=== PATIENT | male | born 1960 | race Caucasian/White ===

== ENCOUNTER 2018-07-26 17:20 | Emergency (ER) | payer MEDICAID, MEDICARE ==
[~2018-07-26] VITALS: Ht 177.8 cm; Wt 69.4 kg
[~2018-07-26 17:20] MED LIST: HYDR-565 PO
[2018-07-26 17:23] VITALS: BP 158/104
[2018-07-26] MEDS ORDERED: HYDR-565 PO (18:28)
== END 2018-07-26 18:45 | disposition home or self-care (01) ==
LOC: ER 17:20
DX: M79.672 Pain in left foot (principal); E78.00 Pure hypercholesterolemia, unspecified; G89.29 Other chronic pain; Z79.899 Other long term (current) drug therapy; Z98.890 Other specified postprocedural states
CPT/HCPCS: 99283

== ENCOUNTER 2020-02-09 12:38 | Emergency (ER) | payer MEDICARE ==
[~2020-02-09] VITALS: Ht 177.8 cm; Wt 72.7 kg
[~2020-02-09 12:38] MED LIST changes: +HYDR-4353 PO; -HYDR-565 PO
[2020-02-09 13:04] VITALS: BP 140/91
[2020-02-09] MEDS ORDERED: ketorolac tromethamine 15mg/ml inj. IM ONE (14:50)
[2020-02-09] MEDS ORDERED: morphine 4 MG/ML inj SYRINge IM ONE (14:50)
[2020-02-09] MEDS ORDERED: LIDOcaine 5% patch TP SCH (15:35)
[2020-02-09] MEDS ORDERED: HYDR-4353 PO ×2 (15:52)
== END 2020-02-09 16:18 | disposition home or self-care (01) ==
LOC: ER 12:38
DX: S42.212A Unspecified displaced fracture of surgical neck of left humerus, initial encounter for closed fracture (principal); S22.42XA Multiple fractures of ribs, left side, initial encounter for closed fracture; E78.00 Pure hypercholesterolemia, unspecified; G89.29 Other chronic pain; Z98.890 Other specified postprocedural states; Z79.899 Other long term (current) drug therapy
CPT/HCPCS: 29240; 71101; 73030; 96372; 99284; J1885; J2270; 29260

== ENCOUNTER 2020-02-12 11:52 | Emergency (ER) | payer MEDICARE ==
[~2020-02-12] VITALS: Ht 177.8 cm; Wt 68.2 kg
[2020-02-12 12:08] VITALS: BP 139/102
[2020-02-12] MEDS ORDERED: HYDROcodone/acetaminophen 10/325mg tab PO ONE (12:30)
[2020-02-12] MEDS ORDERED: HYDR-3972 PO (12:30)
== END 2020-02-12 13:01 | disposition home or self-care (01) ==
LOC: ER 11:52
DX: R07.81 Pleurodynia (principal); M79.642 Pain in left hand; E78.00 Pure hypercholesterolemia, unspecified; G89.29 Other chronic pain; Z98.890 Other specified postprocedural states; Z76.0 Encounter for issue of repeat prescription
CPT/HCPCS: 99284

== ENCOUNTER 2020-02-15 12:28 | Emergency (ER) | payer MEDICARE ==
[~2020-02-15] VITALS: Ht 177.8 cm; Wt 70.0 kg
[~2020-02-15 12:28] MED LIST changes: +HYDR-3972 PO
[2020-02-15 12:33] VITALS: BP 160/99
[2020-02-15] MEDS ORDERED: HYDR-4353 PO (13:54)
== END 2020-02-15 14:22 | disposition home or self-care (01) ==
LOC: ER 12:28
DX: Z88.5 Allergy status to narcotic agent (principal); Z88.6 Allergy status to analgesic agent; E78.00 Pure hypercholesterolemia, unspecified; G89.29 Other chronic pain; Z98.890 Other specified postprocedural states
CPT/HCPCS: 99281

== ENCOUNTER 2022-07-01 23:01 | Inpatient (IN) | payer MEDICARE ==
[~2022-07-01] VITALS: Ht 177.8 cm; Wt 68.2 kg
[2022-07-01] MEDS ORDERED: normal saline 1000ML IV soln IVB ONE (23:55)
[2022-07-02] MEDS: morphine 2 MG/ML inj. syringe IV PRN ×7 (00:11→13:25)
[2022-07-02 00:30] LABS: BASOPHILS # (AUTO) 0.1 X10'3 (0-0.2); BASOPHILS % (AUTO) 1.6 % (0-1); EOSINOPHILS % (AUTO) 0.3 % (0-6); HEMATOCRIT 47.4 % (42.0-52.0); HEMOGLOBIN 16.2 g/dl (14.0-17.9); LYMPHOCYTES # (AUTO) 1.8 X10'3 (1.1-4.8); LYMPHOCYTES % (AUTO) 23.3 % (21-51); MEAN CORPUSCULAR HEMOGLOBIN 31.8 PG (27.0-31.0); MEAN CORPUSCULAR HGB CONC 34.3 g/dL (33.0-36.5); MEAN CORPUSCULAR VOLUME 92.8 FL (78-98); MEAN PLATELET VOLUME 7.6 FL (7.4-10.4); MONOCYTES # (AUTO) 0.7 X10'3 (0-0.9); MONOCYTES % (AUTO) 8.6 % (2-12); NEUTROPHILS # (AUTO) 5.3 X10'3 (1.8-7.7); NEUTROPHILS % (AUTO) 66.2 % (42-75); PLATELET COUNT 362 X10'3 (140-440); RED BLOOD COUNT 5.11 X10'6 (4.70-6.10); RED CELL DISTRIBUTION WIDTH 14.6 % (11.5-14.5)
[2022-07-02 00:37] LABS: APTT 30 SECONDS (22-32)
[2022-07-02 00:39] LABS: ALANINE AMINOTRANSFERASE 54 U/L (12-78); ALBUMIN 3.1 G/DL (3.4-5.0); ALBUMIN/GLOBULIN RATIO 0.8 (1.1-1.5); ALKALINE PHOSPHATASE 87 IU/L (46-116); ANION GAP 10 (8-16); ASPARTATE AMINO TRANSFERASE 56 U/L (10-37); BILIRUBIN,TOTAL 0.7 MG/DL (0.1-1.0); BLOOD UREA NITROGEN 5 MG/DL (7-18); BUN/CREATININE RATIO 5.6 (5.4-32.0); CALCIUM 8.2 MG/DL (8.5-10.1); CHLORIDE 102 MMOL/L (99-107); ETHANOL 0.172 GM/DL (0.0-0.010); GLUCOSE 106 MG/DL (70-104); SODIUM 137 MMOL/L (135-145); TOTAL CARBON DIOXIDE 25.4 MMOL/L (24-32); TOTAL PROTEIN 6.8 G/DL (6.4-8.2); eGFR 86 ML/MIN
[2022-07-02 00:46] LABS: POTASSIUM 4.6 MMOL/L (3.5-5.1)
[2022-07-02] MEDS ORDERED: HYDROcodone/acetaminophen 5mg/325mg tablet PO PRN (01:25)
[2022-07-02] MEDS ORDERED: morphine 2 MG/ML inj. syringe IV PRN (01:25)
[2022-07-02] MEDS ORDERED: LORazepam 2 mg/ml vial IV PRN (01:25)
[2022-07-02] MEDS ORDERED: diphenhydrAMINE 50 mg/ml inj IV PRN (01:25)
[2022-07-02] MEDS ORDERED: ondansetron 4mg rapidly disintigrating tab PO PRN (01:25)
[2022-07-02] MEDS ORDERED: acetaminophen 325mg tablet PO PRN ×2 (01:25)
[2022-07-02] MEDS ORDERED: acetaminophen 650mg rectal suppository RC PRN (01:25)
[2022-07-02] MEDS ORDERED: mag hydrox/Alum hydrox/simeth 30ml oral suspension PO PRN (01:25)
[2022-07-02] MEDS ORDERED: ondansetron/PF 4mg/2ml inj IV PRN (01:25)
[2022-07-02] MEDS ORDERED: bisacodyl 10mg suppository rectal RC PRN (01:25)
[2022-07-02] MEDS ORDERED: diphenhydrAMINE 25mg capsule PO PRN (01:25)
[2022-07-02] MEDS ORDERED: dextrose 50%-water 50ml dispensing syringe IV PRN (01:25)
[2022-07-02] MEDS ORDERED: magnesium hydroxide 30ml (MOM) UD suspension PO PRN (01:25)
[2022-07-02] MEDS: dextrose 5%-1/2 normal saline 1,000 ML IV SCH ×2 (01:53→15:06)
[2022-07-02 01:58] LABS: HEMOGLOBIN A1C 5.6 % (4.5-6.2)
[2022-07-02 02:04] LABS: MAGNESIUM 1.5 MG/DL (1.5-2.4); PHOSPHORUS 2.6 MG/DL (2.3-4.5)
[2022-07-02] MEDS ORDERED: NO HOME MEDS (03:56)
[2022-07-02] MEDS: HYDROmorphone inj. 0.5 MG/0.5 ML DISP.SYRIN IV PRN (04:08)
[2022-07-02 04:37] LABS: CLARITY,URINE CLEAR (Clear); COLOR,URINE YELLOW (Yellow); GLUCOSE, URINE NEGATIVE (Neg); KETONES,URINE NEGATIVE (Neg); LEUKOCYTE ESTERASE ,URINE NEGATIVE (Neg); NITRITES, URINE NEGATIVE (Neg); OCCULT BLOOD,URINE NEGATIVE (Neg); PROTEIN,URINE NEGATIVE (Neg); UROBILINOGEN,URINE 0.2 E.U/dL (0.2-1.0)
[2022-07-02 04:41] LABS: UA COLLECTION TYPE URINAL
[2022-07-02] MEDS: docusate sod 100mg capsule PO SCH ×2 (07:59→20:00)
[2022-07-02] MEDS: thiamine 100mg/ml 2ml inj. IV SCH ×3 (08:08→21:49)
[2022-07-02] MEDS: pantoprazole 40MG/NS 100ML BAG 100 ML IV SCH (08:24)
--- NOTE | 2022-07-02 08:31 | NUR ---
Report called to GRACE Escamilla
[2022-07-02] MEDS: folic acid 1mg/0.2ml inj IV SCH (10:08)
[2022-07-02 10:10] VITALS: BP 125/80
[2022-07-02] MEDS: HYDROcodone/acetaminophen 10/325mg tab PO PRN ×2 (17:14→21:33)
[2022-07-02 18:00] VITALS: BP 139/94
--- NOTE | 2022-07-02 18:00 | NUR ---
Patient in room [facility]THO 4007. I have received report from GRACE Escamilla and had the opportunity to ask questions and assume patient care.
--- NOTE | 2022-07-02 20:30 | NUR ---
Agree with assessment completed by DONNA Carter.
[2022-07-02] MEDS ORDERED: temazepam 15mg capsule PO PRN (21:00)
[2022-07-02 22:00] VITALS: BP 122/83
[2022-07-03] VITALS (15 sets, daily range): BP systolic 89–137; BP diastolic 51–90
[2022-07-03] MEDS: dextrose 5%-1/2 normal saline 1,000 ML IV SCH ×3 (00:04→17:56)
[2022-07-03] MEDS: HYDROcodone/acetaminophen 10/325mg tab PO PRN ×2 (05:57→20:02)
--- NOTE | 2022-07-03 06:16 | NUR ---
Problems reprioritized. Patient report given, questions answered & plan of care reviewed with GRACE Ayala.
--- NOTE | 2022-07-03 06:17 | NUR ---
Patient in room ORTHO 4007. I have received report from Emma THOMPSON and had the opportunity to ask questions and assume patient care.
[2022-07-03 07:15] LABS: BASOPHILS % (AUTO) 0.4 % (0-1); EOSINOPHILS # (AUTO) 0.2 X10'3 (0-0.9); EOSINOPHILS % (AUTO) 1.9 % (0-6); HEMATOCRIT 43.8 % (42.0-52.0); HEMOGLOBIN 14.7 g/dl (14.0-17.9); LYMPHOCYTES # (AUTO) 1.5 X10'3 (1.1-4.8); LYMPHOCYTES % (AUTO) 17.7 % (21-51); MEAN CORPUSCULAR HEMOGLOBIN 31.5 PG (27.0-31.0); MEAN CORPUSCULAR HGB CONC 33.5 g/dL (33.0-36.5); MEAN CORPUSCULAR VOLUME 93.9 FL (78-98); MEAN PLATELET VOLUME 7.6 FL (7.4-10.4); MONOCYTES # (AUTO) 0.7 X10'3 (0-0.9); MONOCYTES % (AUTO) 8.8 % (2-12); NEUTROPHILS # (AUTO) 5.9 X10'3 (1.8-7.7); NEUTROPHILS % (AUTO) 71.2 % (42-75); PLATELET COUNT 277 X10'3 (140-440); RED BLOOD COUNT 4.66 X10'6 (4.70-6.10); RED CELL DISTRIBUTION WIDTH 14.7 % (11.5-14.5); WHITE BLOOD COUNT 8.3 X10'3 (4.5-11.0)
[2022-07-03 07:35] LABS: ALANINE AMINOTRANSFERASE 36 U/L (12-78); ALBUMIN 2.6 G/DL (3.4-5.0); ALBUMIN/GLOBULIN RATIO 0.8 (1.1-1.5); ALKALINE PHOSPHATASE 80 IU/L (46-116); ANION GAP 10 (8-16); ASPARTATE AMINO TRANSFERASE 30 U/L (10-37); BILIRUBIN,TOTAL 2.2 MG/DL (0.1-1.0); BLOOD UREA NITROGEN 6 MG/DL (7-18); BUN/CREATININE RATIO 6.2 (5.4-32.0); CALCIUM 7.5 MG/DL (8.5-10.1); CHLORIDE 107 MMOL/L (99-107); CHOL/HDL RATIO 2.5 (0.00-4.99); CHOLESTEROL 106 MG/DL (0-200); CREATININE 0.97 MG/DL (0.60-1.10); GLUCOSE 110 MG/DL (70-104); HDL CHOLESTEROL 43 MG/DL (35-60); LDL CHOLESTEROL 43 MG/DL (50-100); POTASSIUM 3.4 MMOL/L (3.5-5.1); SODIUM 141 MMOL/L (135-145); TOTAL CARBON DIOXIDE 23.8 MMOL/L (24-32); TOTAL PROTEIN 5.8 G/DL (6.4-8.2); TRIGLYCERIDES 111 MG/DL (20-135); eGFR 79 ML/MIN
--- NOTE | 2022-07-03 07:54 | NUR ---
Malnutrition Consult: Pt DX L hip fx s/p fall hx etoh liver disease and current etoh use 0.172 on admit per EMR. Receiving IV folic acid and thiamine on regular diet though NPO for OR this AM for fx repair per EMR. Pt reports 14-23 pound wt loss however current reported wt is stable w/ prior reported wt hx, pt appears WD/WN per MD note, and no edema/wounds noted per EMR. Pending first meal intake post-op as well as scaled wt this admit. Pt lacks minimum malnutrition criteria at this time; will monitor for further malnutrition criteria and nutrition intervention needs this admit. Addendum: 07/03/22 at [address] Amended: Links added.
[2022-07-03] MEDS: docusate sod 100mg capsule PO SCH ×2 (07:58→20:01)
[2022-07-03] MEDS: pantoprazole 40MG/NS 100ML BAG 100 ML IV SCH (08:02)
[2022-07-03] MEDS: thiamine 100mg/ml 2ml inj. IV SCH ×3 (08:02→22:17)
[2022-07-03] MEDS: HYDROmorphone inj. 0.5 MG/0.5 ML DISP.SYRIN IV PRN ×2 (09:45→13:43)
[2022-07-03] MEDS: folic acid 1mg/0.2ml inj IV SCH (09:45)
[2022-07-03] MEDS ORDERED: ringers solution, lacted 1,000 ML IV SCH (14:00)
[2022-07-03] MEDS ORDERED: morphine 2 MG/ML inj. syringe IV PRN (14:00)
[2022-07-03] MEDS ORDERED: ondansetron/PF 4mg/2ml inj IV PRN ×2 (14:00→16:15)
[2022-07-03] MEDS ORDERED: morphine 4 MG/ML inj SYRINge IV PRN (14:00)
[2022-07-03] MEDS ORDERED: meperidine/PF 25mg/ml syringe IV PRN ×3 (14:00)
[2022-07-03] MEDS ORDERED: proCHLORperazine 10 MG/2 ml inj IV PRN (14:00)
[2022-07-03] MEDS ORDERED: vancomycin 1,000mg inj ONE (14:16)
[2022-07-03] MEDS ORDERED: tranexamic acid inj. 1,000 MG in normal saline 100ml IV soln 90 ML IV ONE (14:20)
[2022-07-03] MEDS ORDERED: ROPIVAcaine 0.5% (5mg/ml) 30ml vial ONE (15:13)
[2022-07-03] MEDS ORDERED: fentaNYL/PF 50MCG/1 ML 2ML syringe ONE (15:30)
[2022-07-03] MEDS ORDERED: morphine /PF 1mg/ml 10ml inj. ONE (15:30)
[2022-07-03] MEDS ORDERED: MIDAZolam 1 MG/ML 5ML VIAL ONE (15:30)
[2022-07-03] MEDS ORDERED: ceFAZolin 1000mg inj ONE ×2 (15:50)
[2022-07-03] MEDS ORDERED: ceFAZolin/D5W- 1GM premix 50 ML IV SCH (16:00)
[2022-07-03] MEDS ORDERED: naloxone 0.4 mg/ml inj IV PRN (16:15)
[2022-07-03] MEDS ORDERED: diphenhydrAMINE 50 mg/ml inj IV PRN (16:15)
[2022-07-03] MEDS ORDERED: naloxone 2mg/2ml inj 1.4 MG in normal saline 500ml IV soln 500 ML IV PRN (16:15)
--- NOTE | 2022-07-03 16:38 | NUR ---
Received from OR via ORTHO BED WITH [facility] , accompanied by Anesthesiologist SHANTA and report given by Anesthesiolgist. PATIENT WITH 20G PIV IN LEFT UE RUNNING LR AT 100. VSS. DENIES PAIN . LEFT FOOT WITH + DORSALIS PEDIS. DRESSING TO LEFT HIP IS CDI. DENIES PAIN CURRENTLY. WILL CONTINUE TO ASSESS. Addendum: 07/03/22 at 1652 by Destin Vauhgn RN, RN Amended: Links added.
--- NOTE | 2022-07-03 17:18 | NUR ---
TRANSFER: CARE OF PATIENT AND REPORT HAS BEEN CALLED. ALL QUESTIONS ANSWERED TO ACCEPTING RN. PATIENT HAS MET ALL CRITERIA FOR TRANSFER TO THE ORTHO FLOOR. VSS. DRESSINGS INTACT. BED LOW, CALL LIGHT PRESENT AND 2 RAILS UP. RN PRESENT TO ACCEPT PATIENT AT BEDSIDE. VSS. DENIES PAIN FROM SPINAL ANESTHESIA. Addendum: 07/03/22 at 1727 by Destin Vaughn RN RN Amended: Links added.
[2022-07-03] MEDS: enoxaparin 40mg/0.4ml syringe SUBCUT SCH (20:00)
--- NOTE | 2022-07-03 22:27 | NUR ---
pt moaning, moving hands and pulling at gown without opening eyes. difficult to get pt to corporate with gown change. will continue to monitor - close to station, pulse ox intact. pt may benefit form different ETOH medications.
[2022-07-03] MEDS: ceFAZolin/D5W- 1GM premix 50 ML IV SCH (23:11)
[2022-07-03] MEDS ORDERED: LIDOcaine 2% 10ml TOPICAL JELLY (Urojet) TP ONE (23:25)
--- NOTE | 2022-07-04 00:25 | NUR ---
He had been bladder scanned for >500 ml's urine earlier and I was given a f/c protocol order but he wanted to try to void before a f/c was placed. He was assisted out of bed and walked a few steps with assist of 2 and fww for safety. He did void 200ml's dark orange urine in the urinal. I did a post void and it showed 671 after voiding. I used lidocaine jelly pre f/c insertion and when I attempted to place the f/c I met resistance and the catheter just kept coiling when I tried to advance it. I took it out and was not able to get any urine out. Will try a coude catheter if he is unable to void in a little while per his request.
--- NOTE | 2022-07-04 01:11 | NUR ---
He was able to void another 200ml's urine after the f/c insertion attempt via urinal and did not need to stand this time.
[2022-07-04 01:23] VITALS: BP 116/71
[2022-07-04] MEDS ORDERED: LORazepam 2 mg/ml vial IV PRN (01:25)
[2022-07-04] MEDS ORDERED: vancomycin/NS 1 GM ADD-VANTAGE 250 ML IV ONE (03:00)
[2022-07-04] MEDS: HYDROcodone/acetaminophen 10/325mg tab PO PRN ×4 (03:25→20:09)
[2022-07-04] MEDS: dextrose 5%-1/2 normal saline 1,000 ML IV SCH ×2 (03:27→16:25)
--- NOTE | 2022-07-04 03:28 | NUR ---
attempted to sit at bedside to void. unsuccessful. bladder scan for over 650ml. will st cath pt.
[2022-07-04 05:00] VITALS: BP 111/75
--- NOTE | 2022-07-04 06:55 | NUR ---
Patient in room ORTHO 4007. I have received report from Neyda EDWARDS and had the opportunity to ask questions and assume patient care.
[2022-07-04 07:07] LABS: BASOPHILS % (AUTO) 0.5 % (0-1); EOSINOPHILS % (AUTO) 0.7 % (0-6); HEMATOCRIT 40.1 % (42.0-52.0); HEMOGLOBIN 13.6 g/dl (14.0-17.9); LYMPHOCYTES % (AUTO) 14.2 % (21-51); MEAN CORPUSCULAR HEMOGLOBIN 31.5 PG (27.0-31.0); MEAN CORPUSCULAR HGB CONC 33.9 g/dL (33.0-36.5); MEAN CORPUSCULAR VOLUME 92.9 FL (78-98); MEAN PLATELET VOLUME 8.1 FL (7.4-10.4); MONOCYTES # (AUTO) 0.8 X10'3 (0-0.9); MONOCYTES % (AUTO) 12.4 % (2-12); NEUTROPHILS # (AUTO) 4.9 X10'3 (1.8-7.7); NEUTROPHILS % (AUTO) 72.2 % (42-75); PLATELET COUNT 193 X10'3 (140-440); RED BLOOD COUNT 4.31 X10'6 (4.70-6.10); RED CELL DISTRIBUTION WIDTH 14.4 % (11.5-14.5); WHITE BLOOD COUNT 6.8 X10'3 (4.5-11.0)
[2022-07-04 07:25] LABS: ALANINE AMINOTRANSFERASE 48 U/L (12-78); ALBUMIN 2.3 G/DL (3.4-5.0); ALBUMIN/GLOBULIN RATIO 0.7 (1.1-1.5); ALKALINE PHOSPHATASE 104 IU/L (46-116); ANION GAP 9 (8-16); ASPARTATE AMINO TRANSFERASE 89 U/L (10-37); BILIRUBIN,TOTAL 1.7 MG/DL (0.1-1.0); BLOOD UREA NITROGEN 6 MG/DL (7-18); BUN/CREATININE RATIO 5.2 (5.4-32.0); CALCIUM 7.2 MG/DL (8.5-10.1); CHLORIDE 106 MMOL/L (99-107); CREATININE 1.15 MG/DL (0.60-1.10); GLUCOSE 85 MG/DL (70-104); POTASSIUM 3.2 MMOL/L (3.5-5.1); SODIUM 138 MMOL/L (135-145); TOTAL CARBON DIOXIDE 23.1 MMOL/L (24-32); TOTAL PROTEIN 5.4 G/DL (6.4-8.2); eGFR 65 ML/MIN
[2022-07-04] MEDS: docusate sod 100mg capsule PO SCH ×2 (07:53→20:00)
[2022-07-04] MEDS: thiamine 100mg/ml 2ml inj. IV SCH ×3 (07:53→20:10)
[2022-07-04] MEDS: ceFAZolin/D5W- 1GM premix 50 ML IV SCH ×2 (07:53→16:19)
[2022-07-04] MEDS: pantoprazole 40MG/NS 100ML BAG 100 ML IV SCH (07:53)
[2022-07-04] MEDS: folic acid 1mg/0.2ml inj IV SCH (09:49)
[2022-07-04 10:00] VITALS: BP 120/80
--- NOTE | 2022-07-04 10:53 | NUR ---
PAGER ID: [phone] MESSAGE: Jacques Mena in [phone] - Potassium is 3.2. Do you want to order potassium protocol? -[phone]
[2022-07-04] MEDS ORDERED: magnesium 4gm in 100ml NS 100 ML IV PRN (11:05)
[2022-07-04] MEDS ORDERED: potassium CL 10mEq/100ml bag 100 ML IV PRN (11:05)
[2022-07-04] MEDS ORDERED: POTASSIUM BICARB 20meq eff tab 20 MEQ TABLET.EFF PO PRN (11:05)
[2022-07-04] MEDS ORDERED: magnesium 2GM in 50ml NS 50 ML IV PRN (11:05)
[2022-07-04] MEDS: HYDROmorphone inj. 0.5 MG/0.5 ML DISP.SYRIN IV PRN ×2 (11:13→16:19)
[2022-07-04 11:22] LABS: MAGNESIUM 1.2 MG/DL (1.5-2.4)
[2022-07-04] MEDS: POTASSIUM BICARB 20meq eff tab 20 MEQ TABLET.EFF PO PRN ×3 (11:27→20:21)
--- NOTE | 2022-07-04 11:29 | NUR ---
Rounded on pt with Dr. Rao. Showed Dr. Rao pt's left arm where previous piv was located. Piv had infiltrated and was warm and edematous. Dr. Rao instructed me to outline redness and monitor.
[2022-07-04 14:00] VITALS: BP 135/86
[2022-07-04 18:00] VITALS: BP 128/73
--- NOTE | 2022-07-04 18:45 | NUR ---
Problems reprioritized. Patient report given, questions answered & plan of care reviewed with Carolyne EDWARDS.
[2022-07-04] MEDS: enoxaparin 40mg/0.4ml syringe SUBCUT SCH (20:10)
[2022-07-04] MEDS: LORazepam 1 MG tablet PO PRN (20:10)
[2022-07-04] MEDS: magnesium Cl slow-release 64mg tablet PO PRN (20:21)
[2022-07-04] MEDS: K and/or MAG REPLACEMENT MC SCH (20:23)
[2022-07-04 22:00] VITALS: BP 126/69
[2022-07-05] MEDS: ceFAZolin/D5W- 1GM premix 50 ML IV SCH ×3 (00:31→17:51)
[2022-07-05 02:00] VITALS: BP 134/86
[2022-07-05] MEDS: HYDROmorphone inj. 0.5 MG/0.5 ML DISP.SYRIN IV PRN (03:21)
[2022-07-05] MEDS: dextrose 5%-1/2 normal saline 1,000 ML IV SCH ×2 (03:22→18:20)
[2022-07-05] MEDS: LORazepam 1 MG tablet PO PRN (03:22)
--- NOTE | 2022-07-05 06:28 | NUR ---
Problems reprioritized. Patient report given, questions answered & plan of care reviewed with JUDSON EDWARDS.
--- NOTE | 2022-07-05 06:30 | NUR ---
Patient in room ORTH[facility] 4007. I have received report from Carolyne EDWARDS and had the opportunity to ask questions and assume patient care.
[2022-07-05 07:00] VITALS: BP 135/85
[2022-07-05] MEDS: K and/or MAG REPLACEMENT MC SCH ×2 (07:31→20:00)
[2022-07-05 08:24] LABS: BASOPHILS % (AUTO) 0.3 % (0-1); EOSINOPHILS % (AUTO) 0.6 % (0-6); HEMOGLOBIN 13.9 g/dl (14.0-17.9); LYMPHOCYTES # (AUTO) 1.2 X10'3 (1.1-4.8); LYMPHOCYTES % (AUTO) 16.5 % (21-51); MEAN CORPUSCULAR HEMOGLOBIN 32.2 PG (27.0-31.0); MEAN CORPUSCULAR HGB CONC 34.7 g/dL (33.0-36.5); MEAN PLATELET VOLUME 8.6 FL (7.4-10.4); MONOCYTES # (AUTO) 0.9 X10'3 (0-0.9); MONOCYTES % (AUTO) 11.7 % (2-12); NEUTROPHILS # (AUTO) 5.3 X10'3 (1.8-7.7); NEUTROPHILS % (AUTO) 70.9 % (42-75); PLATELET COUNT 166 X10'3 (140-440); RED BLOOD COUNT 4.31 X10'6 (4.70-6.10); RED CELL DISTRIBUTION WIDTH 14.3 % (11.5-14.5); WHITE BLOOD COUNT 7.5 X10'3 (4.5-11.0)
[2022-07-05 08:37] LABS: ALANINE AMINOTRANSFERASE 36 U/L (12-78); ALBUMIN 2.2 G/DL (3.4-5.0); ALBUMIN/GLOBULIN RATIO 0.6 (1.1-1.5); ALKALINE PHOSPHATASE 117 IU/L (46-116); ANION GAP 8 (8-16); ASPARTATE AMINO TRANSFERASE 63 U/L (10-37); BILIRUBIN,TOTAL 1.7 MG/DL (0.1-1.0); BLOOD UREA NITROGEN 5 MG/DL (7-18); BUN/CREATININE RATIO 5.2 (5.4-32.0); CALCIUM 7.4 MG/DL (8.5-10.1); CHLORIDE 102 MMOL/L (99-107); CREATININE 0.96 MG/DL (0.60-1.10); GLUCOSE 112 MG/DL (70-104); MAGNESIUM 1.6 MG/DL (1.5-2.4); POTASSIUM 3.5 MMOL/L (3.5-5.1); SODIUM 133 MMOL/L (135-145); TOTAL CARBON DIOXIDE 23.3 MMOL/L (24-32); TOTAL PROTEIN 5.7 G/DL (6.4-8.2); eGFR 80 ML/MIN
[2022-07-05] MEDS: docusate sod 100mg capsule PO SCH ×2 (09:22→19:48)
[2022-07-05] MEDS: magnesium Cl slow-release 64mg tablet PO PRN (09:22)
[2022-07-05] MEDS: pantoprazole 40MG/NS 100ML BAG 100 ML IV SCH (09:22)
[2022-07-05] MEDS: POTASSIUM BICARB 20meq eff tab 20 MEQ TABLET.EFF PO PRN (09:22)
[2022-07-05 10:00] VITALS: BP 120/83
[2022-07-05] MEDS: HYDROcodone/acetaminophen 10/325mg tab PO PRN ×2 (13:13→19:54)
--- NOTE | 2022-07-05 14:47 | NUR ---
Physical Therapy in working with patient. Patient has been up to the bathroom and then back to sleep. Patient has been sleeping and not eating today.
[2022-07-05 18:00] VITALS: BP 115/68
--- NOTE | 2022-07-05 18:18 | NUR ---
Problems reprioritized. Patient report given, questions answered & plan of care reviewed with Carolyne EDWARDS.
[2022-07-05] MEDS: enoxaparin 40mg/0.4ml syringe SUBCUT SCH (19:49)
[2022-07-05 22:02] VITALS: BP 104/56
[2022-07-06] MEDS: LORazepam 1 MG tablet PO PRN (00:05)
[2022-07-06] MEDS: ceFAZolin/D5W- 1GM premix 50 ML IV SCH ×4 (00:05→23:57)
[2022-07-06] MEDS: HYDROcodone/acetaminophen 10/325mg tab PO PRN ×5 (00:06→23:57)
[2022-07-06] MEDS ORDERED: LORazepam 2 mg/ml vial IV PRN (01:25)
[2022-07-06] MEDS ORDERED: LORazepam 1 MG tablet PO PRN (01:25)
[2022-07-06] MEDS: dextrose 5%-1/2 normal saline 1,000 ML IV SCH ×3 (05:31→15:25)
[2022-07-06 06:00] VITALS: BP 106/78
[2022-07-06 06:11] LABS: BASOPHILS % (AUTO) 0.5 % (0-1); EOSINOPHILS # (AUTO) 0.1 X10'3 (0-0.9); EOSINOPHILS % (AUTO) 2.4 % (0-6); HEMATOCRIT 39.3 % (42.0-52.0); HEMOGLOBIN 13.3 g/dl (14.0-17.9); LYMPHOCYTES # (AUTO) 1.6 X10'3 (1.1-4.8); LYMPHOCYTES % (AUTO) 26.9 % (21-51); MEAN CORPUSCULAR HEMOGLOBIN 31.6 PG (27.0-31.0); MEAN CORPUSCULAR HGB CONC 33.9 g/dL (33.0-36.5); MEAN CORPUSCULAR VOLUME 93.2 FL (78-98); MEAN PLATELET VOLUME 8.6 FL (7.4-10.4); MONOCYTES # (AUTO) 0.7 X10'3 (0-0.9); MONOCYTES % (AUTO) 12.4 % (2-12); NEUTROPHILS # (AUTO) 3.4 X10'3 (1.8-7.7); NEUTROPHILS % (AUTO) 57.8 % (42-75); PLATELET COUNT 171 X10'3 (140-440); RED BLOOD COUNT 4.22 X10'6 (4.70-6.10); RED CELL DISTRIBUTION WIDTH 14.7 % (11.5-14.5); WHITE BLOOD COUNT 5.9 X10'3 (4.5-11.0)
[2022-07-06 06:29] LABS: ALANINE AMINOTRANSFERASE 24 U/L (12-78); ALBUMIN/GLOBULIN RATIO 0.5 (1.1-1.5); ALKALINE PHOSPHATASE 106 IU/L (46-116); ANION GAP 9 (8-16); ASPARTATE AMINO TRANSFERASE 40 U/L (10-37); BILIRUBIN,TOTAL 1.1 MG/DL (0.1-1.0); BLOOD UREA NITROGEN 6 MG/DL (7-18); BUN/CREATININE RATIO 6.5 (5.4-32.0); CALCIUM 7.6 MG/DL (8.5-10.1); CHLORIDE 105 MMOL/L (99-107); CREATININE 0.92 MG/DL (0.60-1.10); GLUCOSE 110 MG/DL (70-104); MAGNESIUM 1.9 MG/DL (1.5-2.4); POTASSIUM 3.4 MMOL/L (3.5-5.1); SODIUM 139 MMOL/L (135-145); TOTAL CARBON DIOXIDE 25.4 MMOL/L (24-32); TOTAL PROTEIN 5.7 G/DL (6.4-8.2); eGFR 84 ML/MIN
--- NOTE | 2022-07-06 06:51 | NUR ---
Problems reprioritized. Patient report given, questions answered & plan of care reviewed with ESTRADA EDWARDS.
[2022-07-06] MEDS: K and/or MAG REPLACEMENT MC SCH ×2 (07:06→19:36)
[2022-07-06] MEDS: pantoprazole 40mg Tablet.DR PO SCH (07:35)
[2022-07-06] MEDS: thiamine 100mg tablet PO SCH (07:35)
[2022-07-06] MEDS: docusate sod 100mg capsule PO SCH ×2 (07:35→14:15)
[2022-07-06] MEDS: folic acid 1mg tablet PO SCH (07:35)
--- NOTE | 2022-07-06 07:38 | NUR ---
Initial: Pt DX L hip fx s/p fall hx etoh liver disease and current etoh use 0.172 on admit per EMR. S/p L hip hemiarthroplasty this admit and currently A&O x4 per documentation. Pt on Regular diet w/ mostly 0-25% intake of meals. Pt could benefit from Ensure Enlive TID to assist w/ meeting needs and wound healing. Pt receiving D5 1/2NS at 100ml/hr providing an additional 408kcals/day. LBM 8/6 receiving routine colace. Will continue to monitor. Recs: 1. Continue Regular diet as tolerated 2. Ensure Enlive TID; pending MD verification 3. Bowel care per rx 4. Routine thiamine and folic acid for EtOH hx 5. Scaled wts Addendum: 07/06/22 at [address]ros Quiñones RD Amended: Links added.
[2022-07-06] MEDS: lactose-reduced food (Ensure Enlive) - 237ml bottle PO SCH ×3 (08:00→18:00)
[2022-07-06 18:00] VITALS: BP 106/69
[2022-07-06] MEDS: HYDROmorphone inj. 0.5 MG/0.5 ML DISP.SYRIN IV PRN (18:37)
[2022-07-06] MEDS: enoxaparin 40mg/0.4ml syringe SUBCUT SCH (19:40)
[2022-07-06] MEDS: POTASSIUM BICARB 20meq eff tab 20 MEQ TABLET.EFF PO PRN ×2 (19:41→23:57)
[2022-07-06 22:00] VITALS: BP 119/72
[2022-07-07] MEDS: HYDROcodone/acetaminophen 10/325mg tab PO PRN ×3 (04:31→18:00)
[2022-07-07 06:00] VITALS: BP 114/78
[2022-07-07 06:13] LABS: BASOPHILS % (AUTO) 0.4 % (0-1); EOSINOPHILS # (AUTO) 0.2 X10'3 (0-0.9); HEMATOCRIT 39.3 % (42.0-52.0); HEMOGLOBIN 13.1 g/dl (14.0-17.9); LYMPHOCYTES # (AUTO) 0.9 X10'3 (1.1-4.8); LYMPHOCYTES % (AUTO) 20.7 % (21-51); MEAN CORPUSCULAR HEMOGLOBIN 31.2 PG (27.0-31.0); MEAN CORPUSCULAR HGB CONC 33.3 g/dL (33.0-36.5); MEAN CORPUSCULAR VOLUME 93.7 FL (78-98); MEAN PLATELET VOLUME 8.8 FL (7.4-10.4); MONOCYTES # (AUTO) 0.6 X10'3 (0-0.9); MONOCYTES % (AUTO) 13.3 % (2-12); NEUTROPHILS # (AUTO) 2.7 X10'3 (1.8-7.7); NEUTROPHILS % (AUTO) 60.6 % (42-75); PLATELET COUNT 183 X10'3 (140-440); RED CELL DISTRIBUTION WIDTH 14.4 % (11.5-14.5); WHITE BLOOD COUNT 4.5 X10'3 (4.5-11.0)
--- NOTE | 2022-07-07 06:13 | NUR ---
Problems reprioritized. Patient report given, questions answered & plan of care reviewed with GRACE Morales.
[2022-07-07 06:15] LABS: ANION GAP 5 (8-16); BLOOD UREA NITROGEN 7 MG/DL (7-18); BUN/CREATININE RATIO 8.2 (5.4-32.0); CALCIUM 7.8 MG/DL (8.5-10.1); CHLORIDE 105 MMOL/L (99-107); CREATININE 0.85 MG/DL (0.60-1.10); GLUCOSE 112 MG/DL (70-104); MAGNESIUM 1.8 MG/DL (1.5-2.4); POTASSIUM 4.3 MMOL/L (3.5-5.1); SODIUM 139 MMOL/L (135-145); TOTAL CARBON DIOXIDE 29.3 MMOL/L (24-32); TOTAL PROTEIN 5.7 G/DL (6.4-8.2); eGFR > 90 ML/MIN
[2022-07-07 06:16] LABS: ALANINE AMINOTRANSFERASE 25 U/L (12-78); ALBUMIN 1.8 G/DL (3.4-5.0); ALBUMIN/GLOBULIN RATIO 0.5 (1.1-1.5); ALKALINE PHOSPHATASE 116 IU/L (46-116); ASPARTATE AMINO TRANSFERASE 35 U/L (10-37)
[2022-07-07] MEDS: K and/or MAG REPLACEMENT MC SCH ×2 (08:00→19:13)
[2022-07-07] MEDS: docusate sod 100mg capsule PO SCH ×2 (08:00→19:48)
[2022-07-07] MEDS: ceFAZolin/D5W- 1GM premix 50 ML IV SCH ×2 (08:01→16:58)
[2022-07-07] MEDS: folic acid 1mg tablet PO SCH (08:02)
[2022-07-07] MEDS: pantoprazole 40mg Tablet.DR PO SCH (08:02)
[2022-07-07] MEDS: thiamine 100mg tablet PO SCH (08:02)
[2022-07-07] MEDS: lactose-reduced food (Ensure Enlive) - 237ml bottle PO SCH ×3 (08:50→18:49)
[2022-07-07 10:00] VITALS: BP 106/75
[2022-07-07] MEDS: dextrose 5%-1/2 normal saline 1,000 ML IV SCH ×2 (11:25)
[2022-07-07 18:00] VITALS: BP 123/84
--- NOTE | 2022-07-07 19:30 | NUR ---
Patient had requested PRN dose of Ativan ETOH protocol had fallen off of his emar. Notified MD Colby of patient request also patient feeling a bit anxious r/t to covid diagnosis today and needing to have is room door closed at all times. New order received for .5mg Ativan PO Q4hr PRN for anxiety. New order placed.
[2022-07-07] MEDS: LORazepam 0.5 MG tablet PO PRN (19:47)
[2022-07-07] MEDS: enoxaparin 40mg/0.4ml syringe SUBCUT SCH (19:48)
[2022-07-07 22:00] VITALS: BP 128/73
[2022-07-08] MEDS: dextrose 5%-1/2 normal saline 1,000 ML IV SCH ×3 (00:08→17:25)
[2022-07-08] MEDS: ceFAZolin/D5W- 1GM premix 50 ML IV SCH ×4 (00:09→23:28)
[2022-07-08] MEDS: HYDROcodone/acetaminophen 10/325mg tab PO PRN ×5 (00:09→23:29)
[2022-07-08 06:00] VITALS: BP 118/72
[2022-07-08 06:19] LABS: MAGNESIUM 1.8 MG/DL (1.5-2.4); POTASSIUM 3.9 MMOL/L (3.5-5.1)
[2022-07-08] MEDS: K and/or MAG REPLACEMENT MC SCH ×2 (08:00→19:12)
[2022-07-08] MEDS: lactose-reduced food (Ensure Enlive) - 237ml bottle PO SCH ×3 (08:00→18:14)
[2022-07-08] MEDS: docusate sod 100mg capsule PO SCH ×2 (08:00→19:13)
[2022-07-08] MEDS: thiamine 100mg tablet PO SCH (08:47)
[2022-07-08] MEDS: pantoprazole 40mg Tablet.DR PO SCH (08:47)
[2022-07-08] MEDS: folic acid 1mg tablet PO SCH (08:48)
[2022-07-08 10:00] VITALS: BP 119/77
[2022-07-08 18:00] VITALS: BP 116/80
[2022-07-08] MEDS: LORazepam 0.5 MG tablet PO PRN ×2 (18:11→23:29)
[2022-07-08] MEDS: enoxaparin 40mg/0.4ml syringe SUBCUT SCH (19:49)
[2022-07-08 22:00] VITALS: BP 127/80
[2022-07-09] MEDS: dextrose 5%-1/2 normal saline 1,000 ML IV SCH ×2 (03:25→13:25)
[2022-07-09 06:00] VITALS: BP 126/87
--- NOTE | 2022-07-09 06:10 | NUR ---
Patient in room ORTHO 4007. I have received report from Juana and had the opportunity to ask questions and assume patient care.
[2022-07-09] MEDS: HYDROcodone/acetaminophen 10/325mg tab PO PRN ×4 (07:07→22:04)
[2022-07-09] MEDS: K and/or MAG REPLACEMENT MC SCH ×2 (07:42→19:41)
[2022-07-09] MEDS: folic acid 1mg tablet PO SCH (07:46)
[2022-07-09] MEDS: thiamine 100mg tablet PO SCH (07:46)
[2022-07-09] MEDS: LORazepam 0.5 MG tablet PO PRN ×2 (07:46→17:58)
[2022-07-09] MEDS: pantoprazole 40mg Tablet.DR PO SCH (07:46)
[2022-07-09] MEDS: ceFAZolin/D5W- 1GM premix 50 ML IV SCH ×2 (07:46→16:21)
[2022-07-09] MEDS: docusate sod 100mg capsule PO SCH ×2 (08:00→19:41)
[2022-07-09] MEDS: lactose-reduced food (Ensure Enlive) - 237ml bottle PO SCH ×3 (08:01→18:02)
--- NOTE | 2022-07-09 08:33 | NUR ---
Reassessment: Pt has now tested positive for Covid per EMR. Continues on Regular diet w/ low PO intake, avg 30% x 9 meals though has ~80% of ONS, overall meeting approximately 83% of est energy needs and 79% of est protein needs. [facility] 07/06 receiving routine bowel care. No further nutrition intervention implemented at this time, will continue to monitor. Recs: 1. Continue Regular diet as tolerated 2. Ensure Enlive TID 3. Bowel care per rx 4. Routine thiamine and folic acid for EtOH hx 5. Scaled wts Addendum: 07/09/22 at [address]iñones RD Amended: Links added.
[2022-07-09 10:00] VITALS: BP 122/85
[2022-07-09 14:00] VITALS: BP 157/86
[2022-07-09 18:00] VITALS: BP 128/87
[2022-07-09] MEDS: enoxaparin 40mg/0.4ml syringe SUBCUT SCH (20:10)
[2022-07-09 22:00] VITALS: BP 127/81
[2022-07-10] MEDS: ceFAZolin/D5W- 1GM premix 50 ML IV SCH ×3 (00:07→16:36)
[2022-07-10] MEDS: HYDROcodone/acetaminophen 10/325mg tab PO PRN ×5 (02:10→19:12)
[2022-07-10] MEDS: dextrose 5%-1/2 normal saline 1,000 ML IV SCH ×3 (02:54→19:25)
[2022-07-10 06:00] VITALS: BP 116/75
--- NOTE | 2022-07-10 06:10 | NUR ---
Patient in room ORTHO 4007. I have received report from Juana and had the opportunity to ask questions and assume patient care.
[2022-07-10] MEDS: folic acid 1mg tablet PO SCH (07:49)
[2022-07-10] MEDS: thiamine 100mg tablet PO SCH (07:49)
[2022-07-10] MEDS: docusate sod 100mg capsule PO SCH ×2 (07:49→19:12)
[2022-07-10] MEDS: pantoprazole 40mg Tablet.DR PO SCH (07:49)
[2022-07-10] MEDS: K and/or MAG REPLACEMENT MC SCH ×2 (07:50→20:00)
[2022-07-10] MEDS: lactose-reduced food (Ensure Enlive) - 237ml bottle PO SCH ×3 (07:52→18:16)
[2022-07-10 10:00] VITALS: BP 111/63
[2022-07-10] MEDS: LORazepam 0.5 MG tablet PO PRN ×3 (10:44→19:12)
[2022-07-10 18:00] VITALS: BP 133/82
--- NOTE | 2022-07-10 18:19 | NUR ---
Problems reprioritized. Patient report given, questions answered & plan of care reviewed with Prudence.
[2022-07-10] MEDS: enoxaparin 40mg/0.4ml syringe SUBCUT SCH (19:12)
[2022-07-10 22:00] VITALS: BP 113/74
[2022-07-11] MEDS: LORazepam 0.5 MG tablet PO PRN ×4 (00:21→20:21)
[2022-07-11] MEDS: ceFAZolin/D5W- 1GM premix 50 ML IV SCH ×3 (00:21→16:44)
[2022-07-11] MEDS: HYDROcodone/acetaminophen 10/325mg tab PO PRN ×6 (00:21→23:39)
[2022-07-11] MEDS: dextrose 5%-1/2 normal saline 1,000 ML IV SCH ×2 (00:25→13:59)
[2022-07-11 06:00] VITALS: BP_SYST 140; BP_SYST 168; BP_DIAS 79; BP_DIAS 82
--- NOTE | 2022-07-11 06:33 | NUR ---
Problems reprioritized. Patient report given, questions answered & plan of care reviewed with ITZEL EDWARDS.
[2022-07-11] MEDS: folic acid 1mg tablet PO SCH (07:36)
[2022-07-11] MEDS: pantoprazole 40mg Tablet.DR PO SCH (07:36)
[2022-07-11] MEDS: thiamine 100mg tablet PO SCH (07:37)
[2022-07-11] MEDS: docusate sod 100mg capsule PO SCH ×2 (07:37→20:21)
[2022-07-11] MEDS: lactose-reduced food (Ensure Enlive) - 237ml bottle PO SCH ×3 (07:37→18:03)
[2022-07-11 07:55] LABS: BASOPHILS % (AUTO) 0.6 % (0-1); EOSINOPHILS # (AUTO) 0.3 X10'3 (0-0.9); EOSINOPHILS % (AUTO) 3.8 % (0-6); HEMOGLOBIN 13.2 g/dl (14.0-17.9); LYMPHOCYTES # (AUTO) 1.5 X10'3 (1.1-4.8); MEAN CORPUSCULAR HEMOGLOBIN 31.5 PG (27.0-31.0); MEAN CORPUSCULAR HGB CONC 33.9 g/dL (33.0-36.5); MEAN CORPUSCULAR VOLUME 92.8 FL (78-98); MEAN PLATELET VOLUME 8.1 FL (7.4-10.4); MONOCYTES # (AUTO) 0.7 X10'3 (0-0.9); MONOCYTES % (AUTO) 9.5 % (2-12); NEUTROPHILS # (AUTO) 5.1 X10'3 (1.8-7.7); NEUTROPHILS % (AUTO) 67.1 % (42-75); PLATELET COUNT 456 X10'3 (140-440); RED CELL DISTRIBUTION WIDTH 14.6 % (11.5-14.5); WHITE BLOOD COUNT 7.7 X10'3 (4.5-11.0)
[2022-07-11] MEDS: K and/or MAG REPLACEMENT MC SCH ×2 (08:00→19:15)
[2022-07-11 08:13] LABS: ALANINE AMINOTRANSFERASE 21 U/L (12-78); ALBUMIN 2.5 G/DL (3.4-5.0); ALBUMIN/GLOBULIN RATIO 0.6 (1.1-1.5); ALKALINE PHOSPHATASE 128 IU/L (46-116); ANION GAP 10 (8-16); ASPARTATE AMINO TRANSFERASE 32 U/L (10-37); BILIRUBIN,TOTAL 0.7 MG/DL (0.1-1.0); BLOOD UREA NITROGEN 5 MG/DL (7-18); BUN/CREATININE RATIO 7.1 (5.4-32.0); CALCIUM 8.6 MG/DL (8.5-10.1); CHLORIDE 106 MMOL/L (99-107); GLUCOSE 126 MG/DL (70-104); POTASSIUM 3.7 MMOL/L (3.5-5.1); SODIUM 141 MMOL/L (135-145); TOTAL CARBON DIOXIDE 25.4 MMOL/L (24-32); TOTAL PROTEIN 6.7 G/DL (6.4-8.2); eGFR > 90 ML/MIN
[2022-07-11 10:00] VITALS: BP 127/73
--- NOTE | 2022-07-11 11:32 | NUR ---
Reassessment: PO intake appears to be improving, documented with up to 50-75% PO intake of meals since last RD assessment (07/09) with average 65% PO intake of six most recent Ensure Enlives. Overall pt meeting estimated nutrient needs with combined PO intake of meals and ONS. Of note pt also receiving D5 1/2NS at 100 mL/hr which provides 408 kcal/day. LBM 07/10, receiving routine bowel care. No further nutrition intervention implemented at this time. Will continue to follow. Recommendations: 1. Continue regular diet 2. Ensure Enlive TID 3. Routine bowel care 4. Routine thiamine and folic acid for EtOH hx 5. Scaled wt this admit; subsequent weekly scaled weights Addendum: 07/11/22 at [address] Amended: Links added.
[2022-07-11 18:00] VITALS: BP 129/79
[2022-07-11] MEDS: enoxaparin 40mg/0.4ml syringe SUBCUT SCH (20:21)
--- NOTE | 2022-07-11 20:52 | NUR ---
paged to request DC of IVF and abx.
[2022-07-11 22:00] VITALS: BP 123/70
[2022-07-12] MEDS ORDERED: cephalexin 500mg capsule PO SCH (02:00)
[2022-07-12] MEDS: HYDROcodone/acetaminophen 10/325mg tab PO PRN ×4 (05:22→17:02)
[2022-07-12 06:00] VITALS: BP 129/87
--- NOTE | 2022-07-12 06:11 | NUR ---
Problems reprioritized. Patient report given, questions answered & plan of care reviewed with GRACE Delacruz.
[2022-07-12] MEDS: LORazepam 0.5 MG tablet PO PRN ×2 (07:00→17:36)
[2022-07-12] MEDS: thiamine 100mg tablet PO SCH (07:00)
[2022-07-12] MEDS: pantoprazole 40mg Tablet.DR PO SCH (07:00)
[2022-07-12] MEDS: lactose-reduced food (Ensure Enlive) - 237ml bottle PO SCH ×3 (07:00→17:36)
[2022-07-12] MEDS: folic acid 1mg tablet PO SCH (07:00)
[2022-07-12] MEDS: docusate sod 100mg capsule PO SCH ×2 (07:01→20:15)
[2022-07-12] MEDS: K and/or MAG REPLACEMENT MC SCH ×2 (08:00→18:59)
[2022-07-12 10:00] VITALS: BP 118/74
[2022-07-12 14:00] VITALS: BP 121/70
--- NOTE | 2022-07-12 16:09 | NUR ---
pt ambulates independently to bathroom, educated to call for assistance whenever needed. Pt has voided multiple times this shift as well as had moderate BM. Pt continues to ask for pain medications q4h. Pt worked with physical therapy this shift. Physical therapy states pt would likely benefit from short term rehab seeing as his primary residence [place]. Will continue to monitor patient.
[2022-07-12 18:00] VITALS: BP 114/75
--- NOTE | 2022-07-12 18:23 | NUR ---
Problems reprioritized. Patient report given, questions answered & plan of care reviewed with kate morales.
[2022-07-12] MEDS: enoxaparin 40mg/0.4ml syringe SUBCUT SCH (20:15)
[2022-07-12 22:00] VITALS: BP 127/80
[2022-07-13] MEDS: HYDROcodone/acetaminophen 10/325mg tab PO PRN ×5 (01:59→21:03)
[2022-07-13 06:00] VITALS: BP 131/82
--- NOTE | 2022-07-13 06:20 | NUR ---
Problems reprioritized. Patient report given, questions answered & plan of care reviewed with GRACE Delacruz..
[2022-07-13] MEDS: folic acid 1mg tablet PO SCH (07:57)
[2022-07-13] MEDS: pantoprazole 40mg Tablet.DR PO SCH (07:57)
[2022-07-13] MEDS: thiamine 100mg tablet PO SCH (07:58)
[2022-07-13] MEDS: docusate sod 100mg capsule PO SCH ×2 (07:58→21:02)
[2022-07-13] MEDS: lactose-reduced food (Ensure Enlive) - 237ml bottle PO SCH ×3 (07:58→18:08)
[2022-07-13] MEDS: K and/or MAG REPLACEMENT MC SCH ×2 (08:00→19:37)
[2022-07-13 10:00] VITALS: BP 124/76
[2022-07-13] MEDS: LORazepam 0.5 MG tablet PO PRN (12:06)
[2022-07-13 14:00] VITALS: BP 105/75
--- NOTE | 2022-07-13 16:35 | NUR ---
Pt ambulates to bathroom and in room adlib. Pt continues to c/o pain, requires pain med q4h. Pt has urinated multiple times in toilet as well as had a BM this AM shift. Will continue to monitor patient.
[2022-07-13 18:00] VITALS: BP 121/76
[2022-07-13] MEDS: enoxaparin 40mg/0.4ml syringe SUBCUT SCH (21:02)
[2022-07-13 22:00] VITALS: BP 113/71
[2022-07-14 06:00] VITALS: BP 131/87
--- NOTE | 2022-07-14 06:18 | NUR ---
Problems reprioritized. Patient report given, questions answered & plan of care reviewed with GRACE Worthy.
[2022-07-14] MEDS: pantoprazole 40mg Tablet.DR PO SCH (07:30)
[2022-07-14] MEDS: folic acid 1mg tablet PO SCH (08:00)
[2022-07-14] MEDS: docusate sod 100mg capsule PO SCH (08:00)
[2022-07-14] MEDS: K and/or MAG REPLACEMENT MC SCH (08:00)
[2022-07-14] MEDS: lactose-reduced food (Ensure Enlive) - 237ml bottle PO SCH (08:00)
[2022-07-14] MEDS ORDERED: HYDR-3965 PO (09:43)
[2022-07-14 10:00] VITALS: BP 137/89
[2022-07-14] MEDS: HYDROcodone/acetaminophen 10/325mg tab PO PRN ×2 (10:06→13:45)
[2022-07-14] MEDS: thiamine 100mg tablet PO SCH (10:18)
--- NOTE | 2022-07-17 10:19 | NUR ---
Case Management DC follow up: Unable to reach Patient with only listed telephone number.
== END 2022-07-14 14:00 | disposition home or self-care (01) | DRG 521 ==
LOC: ER 23:02 → ED HOLD 07-02 01:26 → ORTHO 4S 07-02 08:40
PROVIDERS: ADMIT Family Medicine; ATTEND Internal Medicine
PROC: 0SRS01A Replacement of Left Hip Joint, Femoral Surface with Metal Synthetic Substitute, Uncemented, Open Approach (ICD-10-PCS; principal; 2022-07-03 15:27)
DX: S72.012A Unspecified intracapsular fracture of left femur, initial encounter for closed fracture (principal); U07.1 COVID-19; L03.114 Cellulitis of left upper limb; F10.229 Alcohol dependence with intoxication, unspecified; K70.9 Alcoholic liver disease, unspecified; E78.00 Pure hypercholesterolemia, unspecified; W01.0XXA Fall on same level from slipping, tripping and stumbling without subsequent striking against object, initial encounter; Z60.2 Problems related to living alone; F17.210 Nicotine dependence, cigarettes, uncomplicated; F12.90 Cannabis use, unspecified, uncomplicated; G89.4 Chronic pain syndrome; I10 Essential (primary) hypertension; E87.6 Hypokalemia; J44.9 Chronic obstructive pulmonary disease, unspecified; K21.9 Gastro-esophageal reflux disease without esophagitis; M85.80 Other specified disorders of bone density and structure, unspecified site; Z78.9 Other specified health status; Z79.891 Long term (current) use of opiate analgesic; Y93.89 Activity, other specified; Y92.091 Bathroom in other non-institutional residence as the place of occurrence of the external cause; Y99.8 Other external cause status; Z71.6 Tobacco abuse counseling
CPT/HCPCS: 36415; 71045; 72170; 73502; 80053; 80061; 80320; 81003; 83036; 83735; 83880; 84100; 84132; 85025; 85610; 85730; 87081; 87811; 93005; 97110; 97116; 97161; 97530; 99285; A4215; A4314; A4615; A6454; A7000; A9272; C1758; C1776; C9113; G0378; J0690; J1170; J1650; J2060; J2250; J2270; J2274; J2405; J2795; J3010; J3370; J3411; J3490; J7030; J7042; J7120